=== PATIENT | female | born 1980 | race Hispanic/Latino ===

== ENCOUNTER 2025-03-17 19:08 | Inpatient (IN) | payer SELFPAY ==
[~2025-03-17 19:08] MED LIST: Iopamidol 370 76% 100 ML VIAL ONE; Tenecteplase 50 MG ONE
[2025-03-17 19:29] LABS: #Basophils 0.06 10x3/uL (0.0-0.2); #Eosinophils 0.11 10x3/uL (0.0-0.5); #Monocytes 0.55 10x3/uL (0.0-1.1); #Neutrophils 4.40 10x3/uL (1.5-8.4); %Basophils 0.6 % (0.0-2.0); %Eosinophils 1.2 % (0.0-6.0); %Lymphocytes 45.4 % (18.0-47.0); %Monocytes 5.8 % (0.0-10.0); %Neutrophils 46.8 % (40.0-75.0); Hematocrit 40.8 % (34.9-44.5); Hemoglobin 13.2 g/dL (12.0-15.5); Mean Corpuscular Hemoglobin 27.7 pg (27.0-33.0); Mean Corpuscular Volume 85.5 fL (81.6-98.3); Platelet Count 210 10x3/uL (150-450); Red Blood Cell (RBC) Count 4.77 10x6/uL (3.90-5.03); White Blood Cell (WBC) Count 9.42 10x3/uL (3.5-10.5)
[2025-03-17 19:35] LABS: BHCG - Serum Negative (NEGATIVE); Pregs Control Background? CLEAR/WHITE (CLR/WHITE); Pregs Control Bar Appear? YES (CONTROL BAR)
[2025-03-17 19:41] LABS: INR-International Normal Ratio 1.0; PTT 25.9 sec (22.0-33.0); Prothrombin Time 10.8 sec (9.5-12.1)
[2025-03-17 19:42] LABS: Anion Gap 12 mmol/L (10-20); BUN (Urea Nitrogen) 10 mg/dL (7.0-18.7); Calc. Creatinine Clearance 0 mL/min (70-130); Carbon Dioxide 22 mmol/L (22-29); Chloride 110 mmol/L (98-107); Potassium 3.6 mmol/L (3.5-5.1); Sodium 140 mmol/L (136-145)
[2025-03-17 19:43] LABS: ALT (SGPT) 14 U/L (Less than 34); AST (SGOT) 13 U/L (11-34); Albumin 4.8 g/dL (3.1-4.5); Alkaline Phosphatase 60 U/L (40-110); Bilirubin, Total 0.5 mg/dL (0.3-1.2); Calcium 9.6 mg/dL (7.8-10.44); Globulin 3.0 g/dL (2.4-3.5); Glucose 140 mg/dL (70-105)
[2025-03-17 19:48] LABS: Troponin I Less than 0.010 ng/mL (< 0.028)
[2025-03-17 20:04] LABS: Glucose, Urine (Dipstick) Normal (Negative); Leukocyte Negative (Negative); Protein, Urine (Dipstick) Negative (Neg-Trace); Specific Gravity, Urine 1.015 (1.005-1.030)
[2025-03-17 20:17] LABS: Bacteria/HPF Rare-Few HPF (None Seen); CAUTI Indications for Culture Dysuria,urgency,freq; Mucous/LPF 4+ LPF (<2+); RBC/HPF 0-3 HPF (0-3); Urine Culture Reflex No No; WBC/HPF 0-3 HPF (0-3)
[2025-03-17] MEDS ORDERED: Ondansetron PF 4 MG/2 ML Vial IVP PRN (21:02)
[2025-03-17] MEDS ORDERED: niCARdipine 25 MG in Sodium Chloride 0.9% 250 ML 250 ML IVPB PRN (21:04)
[2025-03-17] MEDS ORDERED: Communication Order-Pharmacy FS SCH (21:04)
[2025-03-17] MEDS ORDERED: hydrALAZINE 20 MG/ML VIAL SLOW IVP PRN (21:04)
[2025-03-17 21:25] LABS: Cocaine Metabolite Screen Negative (Negative); THC/Cannabinoid Screen Negative (Negative); Tricyclic Screen Negative (Negative)
[2025-03-17] MEDS: Mupirocin 1 GM TUBE NASAL SCH (22:12)
[2025-03-17 22:38] VITALS: BMI 30.8
[2025-03-18] MEDS: ALPRAZolam 0.5 MG TAB PO PRN (15:36)
[2025-03-19 04:03] LABS: #Basophils 0.03 10x3/uL (0.0-0.2); #Eosinophils 0.13 10x3/uL (0.0-0.5); #Monocytes 0.40 10x3/uL (0.0-1.1); #Neutrophils 3.33 10x3/uL (1.5-8.4); %Basophils 0.4 % (0.0-2.0); %Eosinophils 1.9 % (0.0-6.0); %Lymphocytes 41.6 % (18.0-47.0); %Monocytes 6.0 % (0.0-10.0); %Neutrophils 49.8 % (40.0-75.0); Hematocrit 38.3 % (34.9-44.5); Hemoglobin 12.2 g/dL (12.0-15.5); Mean Corpuscular Hemoglobin 27.4 pg (27.0-33.0); Mean Corpuscular Volume 85.9 fL (81.6-98.3); Platelet Count 179 10x3/uL (150-450); Red Blood Cell (RBC) Count 4.46 10x6/uL (3.90-5.03); White Blood Cell (WBC) Count 6.70 10x3/uL (3.5-10.5)
[2025-03-19 04:20] LABS: Anion Gap 11 mmol/L (10-20); BUN (Urea Nitrogen) 12 mg/dL (7.0-18.7); Calc. Creatinine Clearance 139 mL/min (70-130); Calcium 8.7 mg/dL (7.8-10.44); Carbon Dioxide 22 mmol/L (22-29); Cardiac Risk 4.8 (Less than 4.5); Chloride 112 mmol/L (98-107); Cholesterol 174 mg/dl (< 200 Desired); Glucose 92 mg/dL (70-105); HDL Cholesterol 36 mg/dL (>60 Neg Risk); LDL Cholesterol, Calculated 121 mg/dL; Potassium 3.9 mmol/L (3.5-5.1); Sodium 141 mmol/L (136-145); Triglycerides 87 mg/dL (Less than 150)
[2025-03-19] MEDS: Acetaminophen 325 MG TAB PO PRN (08:10)
[2025-03-19] MEDS: Aspirin 81 mg Enteric Coated Tablet PO SCH (12:22)
[2025-03-20 08:44] LABS: D-Dimer Test 0.95 mcg/mL (0.19-0.50); INR-International Normal Ratio 1.0; PTT 23.9 sec (22.0-33.0); Prothrombin Time 11.4 sec (9.5-12.1)
[2025-03-20] MEDS: Aspirin 81 mg Enteric Coated Tablet PO SCH (09:56)
[2025-03-20 11:19] LABS: #Basophils 0.04 10x3/uL (0.0-0.2); #Eosinophils 0.09 10x3/uL (0.0-0.5); #Monocytes 0.34 10x3/uL (0.0-1.1); #Neutrophils 3.58 10x3/uL (1.5-8.4); %Basophils 0.6 % (0.0-2.0); %Eosinophils 1.3 % (0.0-6.0); %Lymphocytes 39.9 % (18.0-47.0); %Monocytes 5.0 % (0.0-10.0); %Neutrophils 53.1 % (40.0-75.0); Hematocrit 40.8 % (34.9-44.5); Hemoglobin 13.3 g/dL (12.0-15.5); Mean Corpuscular Hemoglobin 27.9 pg (27.0-33.0); Mean Corpuscular Volume 85.7 fL (81.6-98.3); Platelet Count 198 10x3/uL (150-450); Red Blood Cell (RBC) Count 4.76 10x6/uL (3.90-5.03); White Blood Cell (WBC) Count 6.75 10x3/uL (3.5-10.5)
[2025-03-20 11:33] LABS: Anion Gap 12 mmol/L (10-20); BUN (Urea Nitrogen) 13 mg/dL (7.0-18.7); Calc. Creatinine Clearance 135 mL/min (70-130); Calcium 9.4 mg/dL (7.8-10.44); Carbon Dioxide 21 mmol/L (22-29); Chloride 111 mmol/L (98-107); Glucose 115 mg/dL (70-105); Magnesium 2.2 mg/dL (1.6-2.6); Potassium 3.8 mmol/L (3.5-5.1); Sodium 140 mmol/L (136-145)
[2025-03-20] MEDS: levETIRAcetam 500 MG (5 mL) VIAL SLOW IVP SCH ×2 (13:41→21:24)
[2025-03-21 22:42] VITALS: BP 119/80; TEMP 98.9
[2025-03-23 12:20] LABS: EliA APS New Method **** NEW METHOD ****
== END 2025-03-21 15:29 | DRG 62 ==
LOC: CSHERS 19:08 → CSHICU 21:02 → CSHTELE 03-19 17:32
PROVIDERS: ADMIT Internal Medicine; ATTEND Family Medicine
PROC: 3E03317 Introduction of Other Thrombolytic into Peripheral Vein, Percutaneous Approach (ICD-10-PCS; 2025-03-17)
PROC: XX20X89 Monitoring of Brain Electrical Activity, Computer-aided Detection and Notification, New Technology Group 9 (ICD-10-PCS; principal; 2025-03-18)
DX: I63.9 Cerebral infarction, unspecified (principal); G81.91 Hemiplegia, unspecified affecting right dominant side; G93.49 Other encephalopathy; R45.851 Suicidal ideations; I10 Essential (primary) hypertension; E78.5 Hyperlipidemia, unspecified; E11.9 Type 2 diabetes mellitus without complications; F45.9 Somatoform disorder, unspecified; R29.735 NIHSS score 35; R20.0 Anesthesia of skin; R47.81 Slurred speech; R47.1 Dysarthria and anarthria
CPT/HCPCS: 36415; 36416; 37195; 70450; 70496; 70498; 70551; 80048; 80053; 80061; 80306; 81001; 81240; 81241; 83036; 83090; 83605; 83735; 83880; 84146; 84484; 84703; 85025; 85300; 85303; 85306; 85307; 85379; 85598; 85610; 85730; 86147; 93005; 93010; 93306; 94760; 94762; 95705; J1953; J3101; J7030; Q9967